=== PATIENT | female | born 1950 | race Caucasian/White ===

== ENCOUNTER → 2024-02-15 09:05 | Outpatient (REF) | payer MEDICARE, OTHER, SELFPAY ==
[2024-02-15 09:54] LABS: % Basophils 0.9 % (0-2); % Eosinophils 2.4 % (0-6); % Immature Granulocytes 0.3 % (0-0.5); % Lymphocytes 39.7 % (20.5-51.1); % Monocytes 9.6 % (1.7-9.3); % Neutrophils 47.1 % (42.2-75.2); Absolute Eosinophils 0.1 10^3/uL (0-0.7); Absolute Lymphocytes 1.3 10^3/uL (1.2-3.4); Absolute Monocytes 0.3 10^3/uL (0.1-0.6); Absolute Neutrophils 1.6 10^3/uL (1.4-6.5); Hematocrit 39.7 % (37.0-47.0); Hemoglobin 13.2 g/dL (12.0-16.0); Mean Corp Hgb Conc. 33.2 g/dL (33.0-37.0); Mean Corpuscular Hgb 28.1 pg (27.0-31.0); Mean Corpuscular Volume 84.6 fL (81.0-99.0); Mean Platelet Volume 8.6 fL (7.4-10.4); Nucleated Red Blood Cells % 0 %; Platelet Count 162 10^3/uL (130-400); Red Blood Cell Count 4.69 10^6/uL (4.20-5.40); Red Cell Dist. Width 13.7 % (11.5-14.5); White Blood Cell Count 3.4 10^3/uL (4.8-10.8)
[2024-02-15 11:57] LABS: ALT (SGPT) 32 U/L (0-35); AST (SGOT) 42 U/L (14-36); Albumin 4.4 g/dl (3.5-5.0); Alkaline Phosphatase 62 U/L (38-126); Blood Urea Nitrogen 21 mg/dl (7-17); Calcium 9.5 mg/dl (8.4-10.2); Carbon Dioxide 28 mmol/L (22-30); Chloride 102 mmol/L (98-107); Glucose 84 mg/dl (70-99); HDL Cholesterol 91 mg/dl; LDL Cholesterol, Calculated 103 mg/dl; Potassium 4.4 mmol/L (3.5-5.1); Sodium 143 mmol/L (135-145); Total Bilirubin 0.8 mg/dl (0.2-1.3); Total Cholesterol 208 mg/dl (50-199); Triglyceride 70 mg/dl (10-149); Very Low Density Lipoprotein 14 mg/dl (0-30); eGFR > 60.00
== END ==
LOC: REG 09:05
PROVIDERS: ATTENDING PHYSICIAN Family Medicine
DX: E78.00 Pure hypercholesterolemia, unspecified (principal); E78.89 Other lipoprotein metabolism disorders; R79.89 Other specified abnormal findings of blood chemistry; R79.9 Abnormal finding of blood chemistry, unspecified
CPT/HCPCS: 36415; 80053; 80061; 85025

== ENCOUNTER → 2025-02-19 10:31 | Outpatient (REF) | payer MEDICARE, OTHER, SELFPAY ==
[2025-02-19 12:04] LABS: Hematocrit 42.2 % (37.0-47.0); Hemoglobin 13.9 g/dL (12.0-16.0); Mean Corp Hgb Conc. 32.9 g/dL (33.0-37.0); Mean Corpuscular Volume 87.4 fL (81.0-99.0); Nucleated Red Blood Cells % 0 %; Platelet Count 167 10^3/uL (130-400); Red Cell Dist. Width 13.7 % (11.5-14.5)
[2025-02-19 16:05] LABS: ALT (SGPT) 32 U/L (0-35); AST (SGOT) 35 U/L (14-36); Albumin 4.6 g/dl (3.5-5.0); Alkaline Phosphatase 58 U/L (38-126); Blood Urea Nitrogen 20 mg/dl (7-17); Calcium 9.6 mg/dl (8.4-10.2); Carbon Dioxide 26 mmol/L (22-30); Chloride 106 mmol/L (98-107); Glucose 82 mg/dl (70-99); HDL Cholesterol 109 mg/dl; LDL Cholesterol, Calculated 99 mg/dl; Potassium 4.2 mmol/L (3.5-5.1); Sodium 138 mmol/L (135-145); Total Protein 7.5 g/dl (6.3-8.2); Very Low Density Lipoprotein 14 mg/dl (0-30); eGFR > 60.00
== END ==
LOC: REG 10:31
PROVIDERS: ATTENDING PHYSICIAN Family Medicine
DX: E78.00 Pure hypercholesterolemia, unspecified (principal); D72.819 Decreased white blood cell count, unspecified
CPT/HCPCS: 36415; 80053; 80061; 85025

== ENCOUNTER 2025-06-04 | Emergency (ER) | payer MEDICARE, OTHER, SELFPAY ==
[2025-06-04 00:07] VITALS: BP 164/102
[2025-06-04 00:40] VITALS: BMI 24.9
[2025-06-04 00:44] VITALS: BP 149/91
[2025-06-04 01:00] VITALS: BP 138/88
[2025-06-04 01:10] LABS: Hematocrit 39.6 % (37.0-47.0); Hemoglobin 13.2 g/dL (12.0-16.0); Mean Corp Hgb Conc. 33.3 g/dL (33.0-37.0); Mean Corpuscular Volume 83.9 fL (81.0-99.0); Nucleated Red Blood Cells % 0 %; Platelet Count 159 10^3/uL (130-400); Red Cell Dist. Width 13.6 % (11.5-14.5)
[2025-06-04 01:15] LABS: ALT (SGPT) 24 U/L (0-35); AST (SGOT) 31 U/L (14-36); Albumin 4.5 g/dl (3.5-5.0); Alkaline Phosphatase 62 U/L (38-126); Blood Urea Nitrogen 23 mg/dl (7-17); Calcium 9.2 mg/dl (8.4-10.2); Carbon Dioxide 25 mmol/L (22-30); Chloride 104 mmol/L (98-107); Estimated Creatinine Clearance 63 ml/min; Glucose 101 mg/dl (70-99); Potassium 3.7 mmol/L (3.5-5.1); Sodium 138 mmol/L (135-145); Total Protein 7.2 g/dl (6.3-8.2); eGFR > 60.00
--- NOTE | 2025-06-04 01:23 | ED.GENMED ---
History of Present Illness
General
Chief Complaint: Chest Pain
Source: patient
Time Seen by Provider: 06/04/25 01:15
History of Present Illness
History of Present Illness:
74-year-old female presents emergency room complaining of chest pain. Patient states she been having intermittent episodes over the past couple days of a very vague sensation in the back of her throat and chest which she describes as a fullness.
It last about 20 minutes and then goes away. The episodes are not related to activity or exertion. She denies associated shortness of breath, diaphoresis or nausea. When she does exert herself she has no symptoms. She is able to do all of her
normal activities without limitation or issue. The last episode happened at about 11:30 PM. She has no symptoms now. Patient does have a history of SVT for which she had an ablation. She is followed by Dr. Aj Almendarez. She denies any
significant family history of cardiac disease. She does not smoke.
Past History
Past History
ED Past Medical History: Arrthythmia (SVT) and Hypercholesterolemia
ED Past Surgical History: None
Social History
Tobacco: Non-smoker
Alcohol: None
Drug: None
Personal:
Living: with family
Employment: Employed
Family History
Family History: Negative Early CAD
Phy Exam
Physical Exam
Physical Exam:
General: Awake, Alert, Oriented X3. No acute distress.
Vitals: unremarkable
Head: Atraumatic
Eyes: Pupils equal, EOMI
Throat: Airway intact, no exudates
Neck: Trachea midline
Lungs: Clear and equal b/l
Heart: Regular rate, no murmurs
Abd: Soft, Nontender, No pulsatile mass
Neuro: Nonfocal
Skin: Warm, dry, no rash
Extremities: pulses equal b/l, no edema
Scores
Heart Score for Chest Pain Patients
STEMI patient?: No
History: Slightly or Non-Suspicious
ECG: Normal
Age: >/= 65 years
Risk Factors: 1 or 2 Risk Factors
Troponin: </= Normal Limit
Heart Score for Chest Pain Patients: 3
Heart Score Risk: 2.5% MACE over next 6 weeks
Course
Orders/Labs/Results
Orders:
Orders
06/04/25 00:07
Electrocardiogram (*1) Urgent
Reason for Study: Chest Pain
Cardiac Monitoring- Treatment ONCE
EKG- Treatment ONCE
IV Insert/Care/Rem.- Treatment PRN
O2 Therapy [RESP] Urgent
Titrate/Wean O2 to maintain O2 sat greater than (%): 90
Special Instructions: Maintain sats >/=90%
Pulse Ox/spot Check [RESP] Urgent
Quantity: 1
Special Instructions: ON ROOM AIR
06/04/25 00:50
Complete Blood Count/With Diff Urgent
Comprehensive Metabolic Panel Urgent
Troponin I Urgent
06/04/25 01:23
Electrocardiogram (*1) Urgent
Reason for Study: Chest Pain
EKG- Treatment ONCE
06/04/25 02:41
Troponin I Urgent
Abnormal Lab Results
06/04/25
00:50
WBC 4.6 L 10^3/uL
(4.8-10.8)
BUN 23 H mg/dl
(7-17)
Glucose 101 H mg/dl
(70-99)
06/04/25 00:50
06/04/25 00:50
Vital Signs
Initial and Last Documented VS:
Initial Vital Signs
Temp Pulse Resp BP Pulse Ox
97.8 F 78 20 164/102 98
06/04/25 00:07 06/04/25 00:07 06/04/25 00:07 06/04/25 00:07 06/04/25 00:07
Last Documented Vital Signs
Temp Pulse Resp BP Pulse Ox
97.8 F 65 14 123/72 97
06/04/25 00:07 06/04/25 04:00 06/04/25 04:00 06/04/25 04:00 06/04/25 04:00
MDM/Problems Addressed
Differential Diagnosis Includes:
ACS, GERD, chest wall pain, dysrhythmia
MDM/Problems Addressed:
Patient presents with vague atypical type chest discomfort. EKG shows no acute ischemic changes. Troponins negative x 2. Repeat EKG at 02:38 is normal sinus rhythm at 63. There is no ischemic changes and no change from the first EKG. No
evidence of an acute or unstable process. Patient stable for discharge home to follow-up with cardiology as an outpatient.
*Pulse Oximetry
SaO2: 99
Oxygen Mode of Delivery: Room air
Patient hypoxic: no
*EKG
Interpretation: normal
Heart Rate: 69
Rate: normal
Rhythm: sinus
[place]: normal axis
Interval: normal interval
QRS Pattern: normal QRS
Ischemia: no ischemia
*[employer] Interpretation
Rate: normal
Interpretation: normal
Heart Rate: 69
Rhythm: sinus
*Critical Care Note
Total Time (30-74mins, 75-104mins- exclusive of procedures): Not Applicable
ED Attending Note
-
Portions of this chart may have been created with voice recognition software.� Occasional wrong word or��sound alike� substitutions may have occurred due to the inherent limitations of voice recognition software.
Discharge Plan
Departure
Patient Disposition: Home (Routine Discharge)
Date of Disposition: 06/04/25
Time of Disposition: 04:02
Patient with high blood pressure during this ER visit?: Yes
Condition: Good
Discharge Problem:
Chest pain
Instructions: Chest Pain DCA Follow Up, BLOOD PRESSURE
Prescriptions:
No Action
aspirin 81 MG tablet,delayed release (DR/EC)
81 mg PO DAILY
metoprolol succinate 25 MG tablet extended release 24 hr
25 mg PO DAILY Qty: 90 3RF
Referrals:
Christel Box MD [Family Provider, Family Practice]
Aj Almendarez MD [Active, Cardiology]
Interventions
Interventions:
*General Assessment Last Done: 06/04/25 00:40
*Neglect/Abuse Screening Last Done: 06/04/25 00:40
*ED COVID-19 Vaccine History Last Done: 06/04/25 00:40
*ED Influenza Vaccine History Last Done: 06/04/25 00:40
[facility] Fall Risk Assessment Tool Last Done: 06/04/25 00:40
*Risk Screen - Suicide (C-SSRS) Last Done: 06/04/25 00:07
*Nursing Disposition Last Done: 06/04/25 04:11
ED- Cardiac Assessment Last Done: 06/04/25 00:40
Discharge Date and Time
Discharge Date/Time: 06/04/25 04:13
Print Language: [id number]
[2025-06-04 01:26] LABS: Troponin I < 0.012 ng/ml
[2025-06-04 02:00] VITALS: BP 141/93
[2025-06-04 03:00] VITALS: BP 138/83
[2025-06-04 03:28] LABS: Troponin I < 0.012 ng/ml
[2025-06-04 04:00] VITALS: BP 123/72
== END 2025-06-04 04:13 | disposition home or self-care (01) ==
LOC: EMR
PROVIDERS: EMERGENCY PHYSICIAN Emergency Medicine; FAMILY PHYSICIAN Family Medicine
DX: R07.9 Chest pain, unspecified (principal); E78.00 Pure hypercholesterolemia, unspecified; Z86.79 Personal history of other diseases of the circulatory system
CPT/HCPCS: 99284; 80053; 84484; 85025; 93005